=== PATIENT | male | born 1935 | race African-American/Black ===

== ENCOUNTER 2016-11-03 14:37 | Emergency (ER) | payer MEDICARE, BC ==
[~2016-11-03] VITALS: Ht 193 cm; Wt 102.5 kg
[2016-11-03 14:42] VITALS: Ht 193 cm; Wt 102.5 kg
[2016-11-03] MEDS ORDERED: SULF1TAB31 PO (15:44)
[2016-11-03] MEDS ORDERED: CEPH-443 PO (15:44)
--- NOTE | 2016-11-03 16:17 | ERD ---
ER Documentation Chief Complaint Date/Time DATE: 11/03/16 TIME: 16:03 Chief Complaint left ankle wound x 1 week HPI 81 year old male without any known medical problems presents with a wound to the left medial ankle for one week. Patient states pain is moderate and radiates upward. He denies fevers. He denies taking any medications ROS All systems reviewed and are negative except as per history of present illness. Medications Home Meds Active Scripts Sulfamethoxazole/Trimethoprim* (Bactrim Ds* Tablet) 1 Each Tablet, 1 TAB PO BID , #14 TAB Prov:DAVID WRIGHT PA-C 11/03/16 Cephalexin* (Keflex*) 500 Mg Capsule, 500 MG PO QID for 10 Days, CAP Prov:DAVID WRIGHT PA-C 11/03/16 Allergies Allergies: Coded Allergies: No Known Allergy (Unverified , 11/03/16) Physical Exam Vitals Vital Signs Date Time Temp Pulse Resp B/P Pulse Ox O2 Delivery O2 Flow Rate FiO2 11/03/16 14:42 97.5 90 20 156/86 98 Physical Exam General: WD/WN, in no apparent distress, non-toxic appearing HENT: NC/AT Eyes: Conjunctiva normal Neck: Supple Pulm: Clear to auscultation, normal labored breathing; no wheezing/rales/ rhonchi heard CV: Good capillary refill GI: Non-distended, no guarding Back: No masses Ext: No clubbing, cyanosis, or edema Neuro: Moves on all fours Skin: Normal turgor, color, and temperature. No ulcerations or rashes noted. Psych: Normal mood General: WD/WN, in no apparent distress, non-toxic appearing HENT: NC/AT Eyes: Conjunctiva normal Neck: Supple Pulm: Clear to auscultation, normal labored breathing; no wheezing/rales/ rhonchi heard CV: Good capillary refill GI: Non-distended, no guarding Back: No masses Ext: No clubbing, cyanosis, or edema Neuro: Moves on all fours, +2 pedal pedals Skin: 4cm x 4cm ulcer on left medial ankle with maggots no surrounding erythema or purulence Psych: Normal mood Procedures/MDM This is a 81-year-old male without any stated medical problems presenting to the emergency department with a venous ulcer and maggots for 1 week. There was no evidence of cellulitis. Patient still had +2 pedal pulses, I have contacted the amputation center at this hospital and they were able to fill an appointment to see him tomorrow morning. Patient was given prescription for Keflex and Bactrim, patient is neurovascular intact pulmonary stable to be discharged home with precautions are to the emergency department. Patient will follow-up at the amputation center tomorrow morning. He understands and agrees with plan. Departure Diagnosis: Primary Impression: Skin ulcer Non-pressure ulcer stage: unspecified non-pressure ulcer stage Qualified Code : L98.499 - Skin ulcer, with unspecified severity Additional Impression: Venous insufficiency of both lower extremities Condition: Stable Patient Instructions: Chronic Venous Insufficiency: Treating Ulcers, Treating Pressure Ulcers: Debridement, Venous Leg Ulcer Referrals: [facility] Additional Instructions: FOLLOW UP WITH YOUR PRIMARY CARE PHYSICIAN TOMORROW.Return to this facility if you are not improving as expected. Take all medicines as directed. Return to this facility if you are not improving as expected. DAVID WRIGHT PA-C Nov 03, 2016 16:15
== END 2016-11-03 17:43 | disposition home or self-care (01) ==
LOC: FTE 14:37
DX: L97.329 Non-pressure chronic ulcer of left ankle with unspecified severity (principal); I87.2 Venous insufficiency (chronic) (peripheral)
CPT/HCPCS: 99284

== ENCOUNTER 2016-11-25 11:20 | Day surgery (SDC) | payer BC ==
[2016-11-24 12:53] VITALS: BMI 24.3
[2016-11-25] VITALS (12 sets, daily range): BP systolic 122–187; BP diastolic 59–122; PULSE 60–77; RESP 15–29; Ht 195.6 cm; Wt 102.4 kg
[~2016-11-25] VITALS: Ht 195.6 cm; Wt 102.4 kg
[~2016-11-25 11:20] MED LIST: CEPH-443 PO; SULF1TAB31 PO
[2016-11-25] MEDS ORDERED: MAXIDE PO (12:27)
[2016-11-25] MEDS ORDERED: RAMI10CA48 PO (12:28)
--- NOTE | 2016-11-25 12:57 | RADRPT ---
PROCEDURE: XR Chest. CLINICAL INDICATION: Preop TECHNIQUE: Single frontal chest x-ray. COMPARISON: None. FINDINGS: The lungs are clear. No focal opacification is seen. The cardiomediastinal silhouette is unremarka ble. Aortic atherosclerotic vascular calcifications are identified. The osseous structures are natasha rkable for multilevel degenerative enthesopathy of the spine. IMPRESSION: 1. There is no acute cardiopulmonary process. 2. Significant degenerative enthesopathy of the thoracic spine. RPTAT: PP .Mushtaq Awan MD, MD Date Time Electronically viewed and signed by .Mushtaq Awan MD, on 11/25/2016 12:57 .B/
[2016-11-25 13:12] LABS: BASOPHIL # 0.1 10^3/ul (0.0-0.1); BASOPHILS % 0.7 % (0.0-2.0); EOSINOPHILS # 0.1 10^3/ul (0.0-0.5); EOSINOPHILS % 1.6 % (0.0-7.0); HEMATOCRIT 38.8 % (42.0-52.0); HEMOGLOBIN 13.2 g/dl (14.0-18.0); LYMPHOCYTES # 1.4 10^3/ul (0.8-2.9); LYMPHOCYTES % 18.2 % (15.0-51.0); MEAN CORPUSCULAR HEMOGLOBIN 30.8 pg (29.0-33.0); MEAN CORPUSCULAR VOLUME 90.7 fl (82.0-101.0); MEAN PLATELET VOLUME 10.5 fl (7.4-10.4); MONOCYTE # 0.8 10^3/ul (0.3-0.9); MONOCYTES % 10.9 % (0.0-11.0); NEUTROPHILS % 68.3 % (39.0-77.0); PLATELET COUNT 166 10^3/UL (140-415); RED BLOOD COUNT 4.28 10^6/ul (4.70-6.10); RED CELL DISTRIBUTION WIDTH 13.3 % (11.5-14.5); WHITE BLOOD COUNT 7.4 10^3/ul (4.8-10.8)
[2016-11-25 13:21] LABS: INR 0.98
--- NOTE | 2016-11-25 13:23 | RADRPT ---
Vent Rate: 55 bpm RR Interval: 0 msec ND Interval: 256 msec QRS Duration: 114 msec QT Interval: 454 msec QTC Interval: 434 msec P-R-T [place]: 68 - -27 - 58 degrees Sinus bradycardia with 1st degree AV block Possible Left atrial enlargement Borderline ECG Electronically Signed By: Gerber Negrete [id number]
[2016-11-25 13:36] LABS: CALCIUM 9.3 mg/dl (8.4-10.2); CREATININE 1.28 mg/dl (0.61-1.24); POTASSIUM 3.9 mmol/L (3.5-5.1)
[2016-11-25 14:08] LABS: PARTIAL THROMBOPLASTIN TIME 23.5 Sec (25.0-35.0)
[2016-11-25] MEDS ORDERED: FENTAnyl 50 MCG/ML VIAL ONE (15:41)
[2016-11-25] MEDS ORDERED: LIDOCAINE 1% (MDV) 20 ML INJ ONE (15:42)
[2016-11-25] MEDS ORDERED: IODIXANOL LOCM 50 ML BTL ONE ×3 (15:42→16:54)
[2016-11-25] MEDS ORDERED: IOHEXOL 350MG/ML 50 ML BTL ONE ×2 (15:42→16:54)
[2016-11-25] MEDS ORDERED: MIDAZOLAM 1 MG/ML 2 ML INJ ONE (15:43)
[2016-11-25] MEDS ORDERED: HEPARIN 1000 UNITS/NS (A-LINE) 1,000 ML ONE (15:43)
--- NOTE | 2016-11-25 16:59 | SIPON ---
Date/Time of Note Date/Time of Note DATE: 11/25/16 TIME: 16:54 Operative Report Preoperative Diagnosis Non healing left ankle ulcer Postoperative Diagnosis same B SFA occlusions, L popliteal diffuse disease, 1v r/o via L MIRZA which occludes at the ankle and reconstitutes the dorsalis pedis in the foot through collaterals Operation/Procedure Performed aortogram, BLE runoff Surgeon: SAMANTHA SOTELO MD Anesthesia Type: moderate sedation Estimated Blood Loss: none Transfusion Required: no Specimen: none Grafts/Implants: none Complications: no SAMANTHA SOTELO MD Nov 25, 2016 16:59
[2016-11-25] MEDS ORDERED: LABETALOL HCL 20MG INJ IV ONE (18:30)
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
== END 2016-11-25 21:10 | disposition home or self-care (01) ==
LOC: SDS 11:20
PROVIDERS: ATTEND Surgery Vascular Surgery
DX: L97.329 Non-pressure chronic ulcer of left ankle with unspecified severity (principal); I10 Essential (primary) hypertension; G30.9 Alzheimer's disease, unspecified; F02.80 Dementia in other diseases classified elsewhere, unspecified severity, without behavioral disturbance, psychotic disturbance, mood disturbance, and anxiety
CPT/HCPCS: 36200; 71010; 75630; 80048; 85025; 85610; 85730; 93005; C1760; C1769; C1887; C1894; J1644; J2250; J3010; Q9967

== ENCOUNTER → 2016-12-15 | Outpatient (CLI) | payer MEDICARE, BC ==
[~2016-12-15] MED LIST changes: -CEPH-443 PO; +MAXIDE PO; +RAMI10CA48 PO; -SULF1TAB31 PO
--- NOTE | 2016-12-15 13:51 | RADRPT ---
PROCEDURE: XR Chest. CLINICAL INDICATION: Cough. Bronchitis. TECHNIQUE: Two views. Frontal and lateral. COMPARISON: No prior study is available for comparison. FINDINGS: The lungs are clear. The heart size is normal. There is calcification in the aorta consistent with atherosclerosis. There is no pleural effusion. There is no pneumothorax. IMPRESSION: 1. Atherosclerosis. 2. Otherwise normal chest x-ray. RPTAT: QQ .Nimesh Rosas MD, MD Date Time Electronically viewed and signed by .Nimesh Rosas MD, on 12/15/2016 13:51 .R/
[2016-12-15 14:47] LABS: BASOPHIL # 0.1 10^3/ul (0.0-0.1); BASOPHILS % 0.7 % (0.0-2.0); EOSINOPHILS # 0.1 10^3/ul (0.0-0.5); EOSINOPHILS % 1.7 % (0.0-7.0); HEMATOCRIT 38.6 % (42.0-52.0); HEMOGLOBIN 13.1 g/dl (14.0-18.0); LYMPHOCYTES # 1.4 10^3/ul (0.8-2.9); LYMPHOCYTES % 19.5 % (15.0-51.0); MEAN CORPUSCULAR HEMOGLOBIN 31.1 pg (29.0-33.0); MEAN CORPUSCULAR HGB CONC 33.9 g/dl (32.0-37.0); MEAN CORPUSCULAR VOLUME 91.7 fl (82.0-101.0); MEAN PLATELET VOLUME 10.5 fl (7.4-10.4); MONOCYTE # 0.7 10^3/ul (0.3-0.9); MONOCYTES % 9.3 % (0.0-11.0); NEUTROPHIL # 4.8 10^3/ul (1.6-7.5); NEUTROPHILS % 68.7 % (39.0-77.0); PLATELET COUNT 188 10^3/UL (140-415); RED BLOOD COUNT 4.21 10^6/ul (4.70-6.10); RED CELL DISTRIBUTION WIDTH 13.3 % (11.5-14.5); WHITE BLOOD COUNT 7.1 10^3/ul (4.8-10.8)
[2016-12-15 14:59] LABS: INR 0.99; PARTIAL THROMBOPLASTIN TIME 25.6 Sec (25.0-35.0); PROTIME 13.1 Sec (12.2-14.2)
[2016-12-15 15:10] LABS: ALBUMIN 3.8 g/dl (3.3-4.9); ALBUMIN/GLOBULIN RATIO 1.08; POTASSIUM 3.8 mmol/L (3.5-5.1); TOTAL PROTEIN 7.3 g/dl (6.1-8.1)
[2016-12-15 15:55] LABS: BILIRUBIN,INDIRECT 0.3 mg/dl (0-1.1); BILIRUBIN,TOTAL 0.3 mg/dl (0.2-1.3)
== END | disposition home or self-care (01) ==
LOC: LAB 13:01
PROVIDERS: ATTEND Internal Medicine
DX: E78.5 Hyperlipidemia, unspecified (principal); J20.9 Acute bronchitis, unspecified
CPT/HCPCS: 71020; 80053; 80061; 85025; 85610; 85730

== ENCOUNTER → 2017-04-21 | Outpatient (CLI) | END | disposition home or self-care (01) ==

== ENCOUNTER 2017-04-28 09:41 | Inpatient (IN) | END 2017-04-30 17:20 | disposition home or self-care (01) | DRG 272 ==

== ENCOUNTER → 2018-07-13 | Outpatient (CLI) | payer BC, MEDICARE ==
[~2018-07-13] MED LIST changes: +ASPI325T29 PO; +BEN25 PO; -MAXIDE PO; +MELO15TA30 PO; +SIMV40TA2 PO
== END | disposition home or self-care (01) ==
LOC: LAB 11:47
PROVIDERS: ATTEND Internal Medicine
DX: I73.9 Peripheral vascular disease, unspecified (principal); L97.929 Non-pressure chronic ulcer of unspecified part of left lower leg with unspecified severity; R73.03 Prediabetes
CPT/HCPCS: 80048; 83036; 83735; 85025; 85610; 85730